=== PATIENT | female | born 1965 | race Caucasian/White ===

== ENCOUNTER 2022-03-10 10:45 | Emergency (ER) | payer OTHER ==
[2022-03-10 12:13] LABS: CORONAVIRUS 2019 SARS-COV-2 NEGATIVE (NEGATIVE); INFLUENZA A NAA NEGATIVE (NEGATIVE)
[2022-03-10 15:09] LABS: BASOPHIL 0.6 % (0-2); EOSINOPHIL 0.6 % (0-5); HCT 41.5 % (37.0-47.0); HGB 14.4 g/dl (12.5-16.0); LYMPHOCYTE 18.7 % (15-48); MCHC 34.7 g/dL (32.0-36.0); MCV 95.2 fL (78.0-100.0); MPV 9.4 fL (6.0-9.5); NEUTROPHIL 64.9 % (41-80); NRBC 0; PLT 215 K/uL (150-400); RBC 4.36 M/uL (4.20-5.40); RDW 11.8 % (11.5-14.0); WBC 6.2 K/uL (4.0-10.5)
[2022-03-10 15:43] LABS: LACTIC ACID 0.8 mmol/L (0.4-1.9)
[2022-03-10 15:54] LABS: ALBUMIN 3.3 g/dL (3.4-5.0); BILIRUBIN - TOTAL 0.6 mg/dL (0.2-1.0); BUN/CREAT RATIO (CALC) 12.9 RATIO; CREATININE 1.01 mg/dL (0.51-0.95); GLOBULIN (CALCULATION) 3.7 g/dL; MAGNESIUM 2.1 mg/dL (1.8-2.4); POTASSIUM 3.8 mmol/L (3.5-5.1)
[2022-03-10 17:23] LABS: BILIRUBIN NEGATIVE (NEGATIVE); BLOOD NEGATIVE Ery/uL (NEGATIVE); CLARITY CLEAR (CLEAR); COLOR YELLOW (YELLOW); GLUCOSE (U) NORMAL (NORMAL); LEUKOCYTES NEGATIVE Leu/uL (NEGATIVE); NITRITE NEGATIVE (NEGATIVE); PROTEIN NEGATIVE (NEGATIVE); UROBILINOGEN 0.2 mg/dL (0.2-1.0)
[2022-03-10] MEDS ORDERED: CIPRO500 MG PO (17:47)
[2022-03-10] MEDS ORDERED: METRONIDAZOLE500 MG PO (17:47)
[2022-03-10] MEDS ORDERED: NORCO 5-325 TA1 EACH PO (17:47)
[2022-03-11 14:11] LABS: ABSOLUTE CD 4 HELPER 429 /uL (359-1519); BASO (ABSOLUTE) 0.1 x10E3/uL (0.0-0.2); BASOS 1 % (Not Estab.); EOS 1 % (Not Estab.); EOS (ABSOLUTE) 0.1 x10E3/uL (0.0-0.4); HEMATOCRIT 39.6 % (34.0-46.6); HEMOGLOBIN 14.4 g/dL (11.1-15.9); IMMATURE GRANULOCYTES 0 % (Not Estab.); LYMPHS 19 % (Not Estab.); LYMPHS (ABSOLUTE) 1.1 x10E3/uL (0.7-3.1); MCH 34.4 pg (26.6-33.0); MCHC 36.4 g/dL (31.5-35.7); MCV 95 fL (79-97); MONOCYTES 15 % (Not Estab.); MONOCYTES(ABSOLUTE) 0.9 x10E3/uL (0.1-0.9); NEUTROPHILS 64 % (Not Estab.); NEUTROPHILS (ABSOLUTE) 3.8 x10E3/uL (1.4-7.0); PLATELETS 221 x10E3/uL (150-450); RBC 4.18 x10E6/uL (3.77-5.28); RDW 12.5 % (11.7-15.4); WBC 5.9 x10E3/uL (3.4-10.8)
== END 2022-03-10 18:12 | disposition home or self-care (01) ==
LOC: FER 10:45
PROVIDERS: Emergency Medicine
DX: K57.32 Diverticulitis of large intestine without perforation or abscess without bleeding (principal); Z20.822 Contact with and (suspected) exposure to COVID-19; Z28.310 Unvaccinated for COVID-19
CPT/HCPCS: 36415; 80053; 81003; 83605; 83690; 83735; 85025; 87088; J1170; J2405; J7030; Q9967; U0002